=== PATIENT | female | born 1960 | race Caucasian/White ===

== ENCOUNTER 2017-10-02 12:21 | Emergency (ER) | payer MEDICARE, OTHER ==
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
[2017-10-02] MEDS ORDERED: HYDROmorphone 0.5 MG/0.5 ML Syringe IVPUSH ONE (14:14)
[2017-10-02] MEDS ORDERED: Bacitracin Oint 1 GM U/D Packet TOP ONE (14:15)
[2017-10-02] MEDS ORDERED: Ibuprofen 600 MG Tab PO ONE (14:15)
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
[2017-10-02] MEDS ORDERED: Iopamidol 612 MG/ML 100 ML Bottle IV PRN (14:33)
[2017-10-02 14:56] VITALS: BP 150/84
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
== END 2017-10-02 16:12 | disposition home or self-care (01) ==
LOC: JP.ED 12:21
DX: S80.11XA Contusion of right lower leg, initial encounter (principal); S70.02XA Contusion of left hip, initial encounter; S20.219A Contusion of unspecified front wall of thorax, initial encounter; S00.01XA Abrasion of scalp, initial encounter; M62.830 Muscle spasm of back; I10 Essential (primary) hypertension; K21.9 Gastro-esophageal reflux disease without esophagitis; E03.9 Hypothyroidism, unspecified; Z79.899 Other long term (current) drug therapy; Z91.09 Other allergy status, other than to drugs and biological substances; V49.9XXA Car occupant (driver) (passenger) injured in unspecified traffic accident, initial encounter
CPT/HCPCS: 36415; 70450; 71045; 71260; 72100; 72125; 73501; 73590; 80053; 85025; 93005; 96374; 99284; A9270; J1170; J7030; Q9967

== ENCOUNTER 2018-04-30 06:40 | Day surgery (SDC) | payer MEDICARE ==
[2018-04-30] MEDS ORDERED: Lactated Ringers 1,000 ML IV ONE (07:15)
[2018-04-30] MEDS ORDERED: Cyanocobalamin (Vitamin B12) 1,000 MCG/ML SDV IM ONE (07:30)
[2018-04-30] MEDS ORDERED: Propofol 200 MG/20 ML SDV ONE ×2 (07:44→09:54)
[2018-04-30] MEDS ORDERED: fentaNYL 100 MCG/2 ML SDV ONE (07:44)
[2018-04-30] MEDS ORDERED: Glycopyrrolate 0.2 MG/ML 2 ML SDV IVPUSH ONE (07:45)
[2018-04-30] MEDS ORDERED: MVI, Adult with Vitamin K 10 ML, Thiamine 100 MG, Chromium/Copper/Mang/Zinc 1 ML in Dex... IV ONE ×4 (08:15)
[2018-04-30 11:03] VITALS: BP 143/78
--- NOTE | 2018-05-06 17:07 | OR ---
DATE OF PROCEDURE: 04/30/2018 PREOPERATIVE DIAGNOSIS: Weight regain, status post Berenice-en-Y gastric bypass. 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 OPERATIVE PROCEDURE: Upper GI endoscopy. ANESTHESIA: IV sedation. INDICATIONS FOR PROCEDURE: This is a 57-year-old female presenting with persistent weight regain, status post Berenice-en-Y gastric bypass in 2001. This was initially successful. Over the past 2 years, she has developed significant weight regain and despite medical management has maintained a state of morbid obesity. The plan is to proceed with an upper GI endoscopy to investigate possible anatomic causes for the weight regain. Potential risks including bleeding and perforation were discussed, and the patient wishes to proceed. DETAILS OF PROCEDURE: The patient was taken to the operating room and placed in a left lateral decubitus position. IV sedation was administered, after which the upper GI endoscope was passed orally through the length of the esophagus and into the proximal gastric pouch. To that level, the findings were normal; however, within the gastric pouch, there were 2 openings, one passing into the Berenice limb and then another quite large opening passing into the bypassed portion of the stomach. The remainder of the gastric examination as well as pyloric channel and proximal duodenum were otherwise unremarkable. 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 The endoscope was then withdrawn, and the procedure then concluded. The patient was taken to the recovery room in satisfactory condition. The patient's insurance carrier will be contacted regarding final authorization for revision of this gastric bypass. Justin Bunn MD /[id number]
--- NOTE | 2018-05-06 22:40 | OR ---
DATE OF PROCEDURE: 04/30/2018 PREOPERATIVE DIAGNOSIS: Weight regain, status post Berenice-en-Y gastric bypass. POSTOPERATIVE DIAGNOSIS: Weight regain, status post Berenice-en-Y gastric bypass associated with gastrogastric fistula. PROCEDURE PERFORMED: Upper GI endoscopy. ANESTHESIA: IV sedation. INDICATION FOR PROCEDURE: This is a 57-year-old status post previous Berenice-en-Y gastric bypass. Initially, she did well and then more recently now has had increasing problems with weight regain. Plan is to proceed with upper GI endoscopy with biopsies as indicated. Potential risks including bleeding and perforation were discussed, and the patient wishes to proceed. DETAILS OF PROCEDURE: The patient was taken to the operating room and placed in a left lateral decubitus position. IV sedation was administered, after which the upper GI endoscope was passed orally through the length of the esophagus and into the stomach pouch and from there through the gastrojejunostomy roughly 20 cm into the Berenice limb. Findings included normal esophagus and EG junction area. As one entered the gastric pouch, it was evident that there was too large openings leading out of that, one of these got into the Berenice limb as expected. The other quite large opening went into the remainder of the bypassed stomach indicating a staple line breakdown and associated gastrogastric fistula. Within the stomach, there was no significant further pathology per se and pyloric channel and proximal duodenum were unremarkable. At this point, the scope was then withdrawn and procedure was concluded. There were no other complications. The patient was taken to the recovery room in satisfactory condition. The plan will be to contact patient's insurance carrier regarding obtaining prior authorization for revision of the Berenice-en-Y gastric bypass by means of the division of the gastrogastric fistula. Justin Bunn MD /[id number]
== END 2018-04-30 11:19 | disposition home or self-care (01) ==
LOC: JP.SDS 06:40
PROVIDERS: ATTEND Surgery
DX: K95.89 Other complications of other bariatric procedure (principal); R63.5 Abnormal weight gain; Z98.84 Bariatric surgery status; K21.9 Gastro-esophageal reflux disease without esophagitis
CPT/HCPCS: 43239; J2704; J3010; J3411; J3420; J3490; J7042; J7120

== ENCOUNTER 2018-08-06 08:00 | Inpatient (IN) | payer MEDICARE ==
[~2018-08-06 08:00] MED LIST: cefOXitin 2 GM Vial ONE
[2018-08-06] MEDS ORDERED: Gabapentin 300 MG Cap PO ONE (09:15)
[2018-08-06] MEDS ORDERED: Scopolamine 1.5 MG Transdermal Patch TOP ONE (09:15)
[2018-08-06] MEDS ORDERED: Celecoxib 200 MG Cap PO ONE (09:15)
[2018-08-06] MEDS ORDERED: Acetaminophen 500 MG Tab PO ONE (09:15)
[2018-08-06] MEDS ORDERED: Dextrose 5%-Lactated Ringers 1,000 ML IV SCH ×2 (09:30→17:00)
[2018-08-06] MEDS ORDERED: Ketamine 50 MG in Sodium Chloride 0.9% 49.5 ML IV SCH (10:00)
[2018-08-06] MEDS ORDERED: Lidocaine 2% 100 MG/5 ML Syringe IVPUSH SCH (10:00)
[2018-08-06] MEDS ORDERED: Ketamine 500 MG/5 ML MDV IV SCH (10:00)
[2018-08-06] MEDS ORDERED: Ropivacaine 48 ML, Dexamethasone 8 MG, EPINEPHrine 0.4 MG, Sodium Chloride 0.9% 29.6 ML NERVRT SCH ×4 (10:00)
[2018-08-06] MEDS ORDERED: Neostigmine Methylsulfate 1 MG/ML 5 ML Syringe ONE (10:55)
[2018-08-06] MEDS ORDERED: Succinylcholine 200 MG/10 ML MDV ONE (10:55)
[2018-08-06] MEDS ORDERED: Rocuronium 50 MG/5 ML Vial ONE (10:55)
[2018-08-06] MEDS ORDERED: Dexamethasone 4 MG/ML SDV ONE (10:55)
[2018-08-06] MEDS ORDERED: Glycopyrrolate 0.2 MG/ML 5 ML MDV ONE (10:55)
[2018-08-06] MEDS ORDERED: fentaNYL 250 MCG/5 ML SDV ONE ×2 (10:55→15:07)
[2018-08-06] MEDS ORDERED: Ondansetron 4 MG/2 ML SDV ONE (10:55)
[2018-08-06] MEDS ORDERED: Propofol 200 MG/20 ML SDV ONE (10:55)
[2018-08-06] MEDS ORDERED: Lactated Ringers 1,000 ML ONE (10:56)
[2018-08-06] MEDS: cefOXitin 2 GM in Sodium Chloride 0.9% 50 ML IV ONE ×2 (14:36→17:29)
[2018-08-06] MEDS ORDERED: Ondansetron 4 MG/2 ML SDV IVPUSH PRN (16:48)
[2018-08-06] MEDS ORDERED: Labetalol 20 MG/4 ML Syringe IVPUSH PRN (16:48)
[2018-08-06] MEDS ORDERED: hydrOXYzine HCl 100 MG/2 ML SDV IM PRN (16:48)
[2018-08-06] MEDS ORDERED: HYDROmorphone 0.5 MG/0.5 ML Syringe IVPUSH PRN (16:48)
[2018-08-06] MEDS ORDERED: diphenhydrAMINE 50 MG/ML SDV IVPUSH PRN (16:48)
[2018-08-06] MEDS ORDERED: Metoclopramide 10 MG/2 ML SDV IVPUSH PRN (16:48)
[2018-08-06] MEDS ORDERED: Pantoprazole 40 MG Vial IVPUSH SCH (17:00)
[2018-08-06] MEDS: Lidocaine 0.4%/D5W 2 GM/500 ML BAG IV SCH (17:28)
[2018-08-06] MEDS: HYDROmorphone 1 MG/ML Syringe IV PRN ×2 (17:31→20:23)
[2018-08-06] MEDS: Acetaminophen 325 MG Tab PO SCH (17:49)
[2018-08-06] MEDS ORDERED: MVI, Adult with Vitamin K 10 ML, Thiamine 200 MG, Chromium/Copper/Mang/Selen/Zn 1 ML in... IV SCH ×4 (18:00)
[2018-08-06] MEDS: Heparin Sodium 5,000 Units/ML Vial SUBCUT SCH (19:13)
[2018-08-06] MEDS: cefOXitin 2 GM in Sodium Chloride 0.9% 50 ML IV SCH (19:15)
[2018-08-06] MEDS: Latanoprost 0.005% Ophth Soln 2.5 ML Bottle EYEBOTH SCH (20:15)
[2018-08-06] MEDS: Metoprolol Tartrate 25 MG Tab PO SCH (20:15)
[2018-08-06] MEDS: Gabapentin 300 MG Cap PO SCH (20:15)
[2018-08-06] MEDS: Pramipexole 0.5 MG Tab PO SCH (21:28)
[2018-08-07] MEDS: Acetaminophen 325 MG Tab PO SCH ×5 (00:07→23:49)
[2018-08-07] MEDS: cefOXitin 2 GM in Sodium Chloride 0.9% 50 ML IV SCH ×3 (02:06→14:18)
[2018-08-07] MEDS ORDERED: Iohexol 647 MG/ML 50 ML SDV PO STA (03:47)
--- NOTE | 2018-08-07 04:14 | CRLCR ---
PRELIMINARY IMPRESSION: 1. Gastrojejunostomy anastomosis is opacified with oral contrast. No contrast extravasation is identified on static images. 2. Surgical clips are noted in the right upper quadrant from prior cholecystectomy. Dictated by Chaz Joyce MD @ 08/07/2018 4:12:41 AM Agree with preliminary interpretation. No additional findings. Dictated by: Adam Knapp MD @ 08/10/2018 10:37:57 (Electronically Signed)
[2018-08-07] MEDS: HYDROmorphone 1 MG/ML Syringe IV PRN (05:11)
--- NOTE | 2018-08-07 06:25 | CRLCR ---
INDICATION: DELAY FILM FOR S/P RNY REVISION Comparison: August 07, 2018 Impression: Oral contrast has progressed into the distal small bowel and proximal colon. No sign of contrast extravasation. Bowel appears normal in caliber, no signs of obstruction. Dictated by Adam Knapp MD @ 08/07/2018 6:24:34 AM Dictated by: Adam Knapp MD @ 08/10/2018 10:38:44 (Electronically Signed)
[2018-08-07] MEDS ORDERED: Dextrose 5%-Lactated Ringers 1,000 ML IV SCH (07:45)
[2018-08-07] MEDS ORDERED: Ondansetron 4 MG Tab.DIS PO PRN (07:45)
[2018-08-07] MEDS ORDERED: ZOLMITRIPTAN 5 MG PO PRN ×2 (07:46→08:05)
[2018-08-07] MEDS ORDERED: hydrOXYzine HCl 25 MG Tab PO PRN (07:47)
[2018-08-07] MEDS: Celecoxib 200 MG Cap PO SCH (08:57)
[2018-08-07] MEDS: Oxybutynin 5 MG Tab PO SCH ×2 (08:57→20:07)
[2018-08-07] MEDS: Gabapentin 300 MG Cap PO SCH ×3 (08:58→20:07)
[2018-08-07] MEDS: Heparin Sodium 5,000 Units/ML Vial SUBCUT SCH ×2 (08:59→20:02)
[2018-08-07] MEDS: DULoxetine 30 MG Cap PO SCH (08:59)
[2018-08-07] MEDS: Pramipexole 0.5 MG Tab PO SCH ×2 (08:59→20:07)
[2018-08-07] MEDS ORDERED: Non-Formulary Medication 1 Each (Oxybutynin [Oxybutynin Er] 5 MG) PO SCH (09:00)
[2018-08-07] MEDS: Metoprolol Tartrate 25 MG Tab PO SCH ×2 (09:03→20:03)
[2018-08-07] MEDS: SCOPOLAMINE PATCH CHECK TOP SCH (09:04)
[2018-08-07] MEDS: Lidocaine 0.4%/D5W 2 GM/500 ML BAG IV SCH (10:41)
--- NOTE | 2018-08-07 11:09 | PN ---
DATE OF SERVICE: 08/07/2018 SUBJECTIVE: Gill is postoperative day #1. Her upper GI was normal. Pain has been controlled. She has been up ambulating. She currently is sitting in the chair. Vital signs have been stable. She has no questions or concerns. OBJECTIVE: GENERAL: Gill Mir is a pleasant 57-year-old female. She is alert and orientated. VITAL SIGNS: TPR 97.8, 61, 18, blood pressure 140/74. HEENT: Negative. NECK: Supple. HEART: Regular rate and rhythm. LUNGS: Clear. ABDOMEN: Dressing is dry and intact. Abdominal binder is on. EXTREMITIES: Without peripheral edema. ASSESSMENT: Diagnostic laparoscopy with lysis of extensive adhesions. 1. Revision of Berenice-en-Y gastric bypass surgery. 2. Revision of the gastrojejunostomy fistula. 3. Repair of incarcerated incisional hernia. 4. Placement of Interceed mesh. For weight regain, status post Berenice-en-Y gastric bypass surgeries, small gastrogastric fistula, incarcerated incisional hernia, and extensive intraabdominal adhesions. Date of surgery 08/06/2018. Surgeon, Justin Bunn MD. PLAN: 1. Step 2 gastric bypass diet. 2. Decrease IV to 100 mL per hour. 3. Atarax, hydroxyzine, 25 mg p.o. q.4 hours p.r.n. additional pain. 4. Zofran ODT 4 mg q.4 hours p.r.n. nausea. 5. Communication order: Three med cups every hour, record at bedside. 6. Dressing off. May shower. Good pulmonary toilet. We will evaluate p.r.n. or in the a.m. 7. Plan discharge in a.m. Theresa Randhawa PA-C /[id number]
[2018-08-07] MEDS ORDERED: MVI, Adult with Vitamin K 10 ML, Thiamine 200 MG, Chromium/Copper/Mang/Selen/Zn 1 ML in... IV SCH ×4 (16:00)
[2018-08-07] MEDS ORDERED: Pantoprazole 40 MG Delayed-Release Granules 1 Packet PO SCH (16:30)
[2018-08-07] MEDS: Latanoprost 0.005% Ophth Soln 2.5 ML Bottle EYEBOTH SCH (20:08)
[2018-08-07] MEDS ORDERED: Non-Formulary Medication 1 Each (Latanoprost/Pf [Latanoprost 0.005% Eye Drop] 1 DROP) EYEBOTH SCH (21:00)
[2018-08-07] MEDS ORDERED: Latanoprost 0.005% Ophth Soln 2.5 ML Bottle EYEBOTH SCH (21:00)
[2018-08-08] MEDS: Acetaminophen 325 MG Tab PO SCH (05:47)
[2018-08-08] MEDS: Gabapentin 300 MG Cap PO SCH (08:01)
[2018-08-08] MEDS: DULoxetine 30 MG Cap PO SCH (08:02)
[2018-08-08] MEDS: Oxybutynin 5 MG Tab PO SCH (08:02)
[2018-08-08] MEDS: SCOPOLAMINE PATCH CHECK TOP SCH (08:03)
[2018-08-08] MEDS: Celecoxib 200 MG Cap PO SCH (08:03)
[2018-08-08] MEDS: Heparin Sodium 5,000 Units/ML Vial SUBCUT SCH (08:03)
[2018-08-08] MEDS: Pramipexole 0.5 MG Tab PO SCH (08:03)
[2018-08-08] MEDS: Metoprolol Tartrate 25 MG Tab PO SCH (08:06)
[2018-08-08 08:07] VITALS: BP 152/80
[2018-08-08] MEDS ORDERED: Cyanocobalamin (Vitamin B12) 1,000 MCG/ML SDV IM ONE (09:00)
--- NOTE | 2018-08-10 10:52 | OR ---
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 POSTOPERATIVE DIAGNOSES: 1. 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 2. Incarcerated incisional hernia at previous trocar site. 3. Extensive intraabdominal adhesions. OPERATIVE PROCEDURES: Diagnostic laparoscopy with lysis of adhesions and: 1. Revision of Berenice-en-Y gastric bypass, including division of gastrogastric fistula (98858). 2. Repair of incarcerated incisional hernia (96100). 3. Placement of Interceed mesh to displace pelvic and abdominal wall from underlying viscera to limit recurrent adhesion formation (38184). ANESTHESIA: General. FILTRATION SUPERVISOR: Theresa Randhawa PA-C. INDICATION FOR PROCEDURE: This is a 57-year-old female with previously good result from a Berenice-en-Y gastric bypass, presenting with significant weight regain. 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 The plan is to proceed with a revisional procedure with division of the gastrogastric fistula, and as this usually alone does not result in much additional weight loss, the limb lengths will be revised as well to provide more in the way of malabsorption. Potential risks of the procedure including bleeding, infection, leaks from various staple lines, problems with bowel obstruction over time, possibility of malnutrition and/or multiple frequent loose bowel movements that might be problematic were reviewed, as well as the need to be followed somewhat more closely with regard to vitamins and other nutritional indices in the postoperative period were all gone over, and the patient wishes to proceed. DETAILS OF PROCEDURE: The patient was taken to the operating room. After general endotracheal anesthesia was induced, she was placed in a lithotomy position. The abdomen was prepped and draped. In the left lower quadrant, a transverse incision was made, and the peritoneal cavity entered under direct vision with an Optiview trocar and inflated to 15 mmHg pressure with CO2. Laparoscope was then reinserted. No underlying trocar insertion site injuries were seen. Following this, eventually, 5 additional trocars were placed across the upper and mid abdomen. Bilateral transversus abdominis plane blocks were then placed. The patient was noted to have quite a bit in the way of adhesions between the omentum and an area of transverse colon across the upper and mid abdomen. These were taken down with Harmonic Scalpel. Additionally, the patient was noted to have a trocar site hernia located in the right midabdomen. The hernia contents were dissected free, particularly, with external pressure with Harmonic scalpel. At that point, the hernia appeared to be satisfactorily reduced. Attention was then taken to the area of the gastric pouch. The liver was retracted anteriorly, and the gastric pouch could be eventually visualized after a period of dissection, and the connection between the gastric pouch and stomach became evident in the upper left aspect of the gastric pouch. This was encircled by means of dissection and then divided with a HARLAN black load. This appeared to be secured at this point. Some omentum was interposed in between the 2 areas of the staple line. Attention was then taken to the limb lengths. The present Berenice limb measured 130 cm. The patient had a quite short biliopancreatic limb only in the range of 15 cm beyond the ligament of Treitz. At that point, we decided to leave the patient with a total alimentary limb length of 350 cm. Given this, the Berenice limb was then divided off the present jejunojejunostomy with HARLAN stapler. Small length of the small bowel was then removed, which was devascularized and sent as a specimen. At that point, the ileocecal valve was identified, and the small bowel was then traced back 220 cm. A suture was placed at that level to identify that location. The biliopancreatic limb was then marched down from the ligament of Treitz. The biliopancreatic limb was now significantly lengthened by means of present revisional technique and measured 425 cm up to the point of the suture being placed. The enteroenterostomy was then accomplished with an internal firing of the Endo-HARLAN rick load, 60 mm in length and closed transversely with purple loads. There appeared to be no evidence of any significant stricturing at the anastomosis. The angles of anastomosis and mesenteric defect were then approximated with some 0 Ethibond stitch, along with fibrin sealant. At that point, no further problems were noted. The abdomen was irrigated with an antibiotic-containing saline solution. The incisional hernia was then closed with a small stab wound over the center of the incision, and two sets of sutures were then placed by means of a laparoscopic suture passer. These being 0 Vicryl stitch, and these were then tied, which appeared to secure the hernia. To limit recurrent adhesion formation, Interceed mesh was then placed over the new anastomosis and from there downward somewhat into the pelvis. At that point, no further problems were noted. Trocars were removed, and the peritoneal cavity decompressed. The 12- mm trocars were then closed at the fascia level with 0 Vicryl stitch, and the skin with 4-0 Vicryl skin stitch. Dressings were applied. The patient was taken to the recovery room in a satisfactory condition. There were no evident complications. Physician drug safety assistant, Theresa Randhawa, played an essential role in assisting in this case, helping to position the patient, retract structures as needed, as well as suturing and cutting sutures when indicated. Her presence improved patient safety and decreased the operative time. Justin Bunn MD /[id number]
--- NOTE | 2018-08-11 08:06 | DISCH ---
FINAL DIAGNOSES: 1. Weight regain status post Berenice-en-Y gastric bypass with a small gastrogastric fistula. 2. Incarcerated incisional hernia. 3. Extensive intraabdominal adhesions. 4. History of anxiety and depression. 5. Fibromyalgia. 6. Treated hypothyroidism. 7. History of opioid dependence. 8. History of hypertension. OPERATIVE PROCEDURE: This was done on 08/06/2018, diagnostic laparoscopy with lysis of adhesions: 1. Revision of Berenice-en-Y gastric bypass, including division of the gastrogastric fistula. 2. Repair of incarcerated incisional hernia. 3. Placement of Interceed mesh to limit recurrent adhesion formation. SUMMARY: This is a 57-year-old female status post previous Berenice-en-Y gastric bypass, which was done in [facility] in [place] in early 1999s. Initially, she did well but then, over the last few years, has had significant weight regain with admission weight being 248 pounds and a BMI of 45 at this time. On workup, the patient was noted to have a small gastrogastric fistula, and plan was made to proceed with a laparoscopy, laparotomy if necessary, and closure of the fistula and also adjustment of the limb lengths to facilitate increased weight loss. This was done on 08/06/2018. The patient presently is eating satisfactorily, and she does not require Tylenol for pain and otherwise will go home on her usual medications. Followup will be with Theresa Randhawa at [facility] on 08/17/2018 at 11:00 a.m., and she has been instructed to stay on a step 3 diet until that appointment.
== END 2018-08-08 09:43 | disposition home or self-care (01) | DRG 620 ==
LOC: EDSTATUS 08:00 → JP.SDS 08:53 → JP.SDSSCHI 08:53 → JP.MS 16:35
PROVIDERS: ADMIT Surgery; ATTEND Surgery
PROC: 0DNL4ZZ Release Transverse Colon, Percutaneous Endoscopic Approach (ICD-10-PCS; principal; 2018-08-06)
PROC: 0DNU4ZZ Release Omentum, Percutaneous Endoscopic Approach (ICD-10-PCS; principal; 2018-08-06)
PROC: 0WUF4JZ Supplement Abdominal Wall with Synthetic Substitute, Percutaneous Endoscopic Approach (ICD-10-PCS; principal; 2018-08-06)
PROC: 0DU647Z Supplement Stomach with Autologous Tissue Substitute, Percutaneous Endoscopic Approach (ICD-10-PCS; principal; 2018-08-06)
PROC: 0D164ZA Bypass Stomach to Jejunum, Percutaneous Endoscopic Approach (ICD-10-PCS; principal; 2018-08-06)
DX: E66.01 Morbid (severe) obesity due to excess calories (principal); K91.2 Postsurgical malabsorption, not elsewhere classified; K43.0 Incisional hernia with obstruction, without gangrene; K31.6 Fistula of stomach and duodenum; Z68.42 Body mass index [BMI] 45.0-49.9, adult; K66.0 Peritoneal adhesions (postprocedural) (postinfection); D50.9 Iron deficiency anemia, unspecified; E03.9 Hypothyroidism, unspecified; G25.81 Restless legs syndrome; M79.7 Fibromyalgia; I10 Essential (primary) hypertension; F41.8 Other specified anxiety disorders; F43.10 Post-traumatic stress disorder, unspecified; H40.9 Unspecified glaucoma; K21.9 Gastro-esophageal reflux disease without esophagitis; F51.01 Primary insomnia; N39.46 Mixed incontinence; E50.9 Vitamin A deficiency, unspecified; E55.9 Vitamin D deficiency, unspecified; E61.0 Copper deficiency; E60 Dietary zinc deficiency; E53.8 Deficiency of other specified B group vitamins; G89.29 Other chronic pain; Z79.899 Other long term (current) drug therapy; Z91.048 Other nonmedicinal substance allergy status; Z98.84 Bariatric surgery status; Z90.49 Acquired absence of other specified parts of digestive tract
CPT/HCPCS: 36415; 74018; 74240; 82728; 82962; 86850; 86900; 86901; 88302; 88307; A9270-GY; C9113; J0171; J0330; J0694; J1100; J1170; J1644; J2001; J2405; J2704; J2710; J2795; J3010; J3411; J3420; J3490; J7042; J7050; J7120; Q9967